=== PATIENT | male | born 1980 | race Caucasian/White ===

== ENCOUNTER 2018-05-22 13:30 | Outpatient (RCR) | payer OTHER | END 2018-06-08 09:35 | disposition home or self-care (01) | LOC: WSPT 13:30 | DX: Z47.89 Encounter for other orthopedic aftercare (principal) | CPT/HCPCS: G0283-GP ==

== ENCOUNTER → 2019-09-26 | Outpatient (CLI) | payer OTHER | LOC: COL.RAD 08:31 | DX: M51.27 Other intervertebral disc displacement, lumbosacral region (principal); M23.91 Unspecified internal derangement of right knee; M25.461 Effusion, right knee ==